=== PATIENT | female | born 1980 | race Caucasian/White ===

== ENCOUNTER 2017-07-21 06:55 | Inpatient (IN) | payer BC ==
--- NOTE | 2017-07-21 07:34 | PCM.LDHP ---
L&D History of Present Illness - General Date of Service: 07/21/17 Admit Problem/Dx: Admission Diagnosis/Problem Admission Diagnosis/Problem 07/21/17 07:24 39-0/7 week intrauterine , elective induction of labor Source of Information: Patient History Limitations: Reports: No Limitations - History of Present Illness Introduction:: Kathe is a 37-year-old 4 para 10-1 white female with an DARIEL of 2017 place her at 39-0/7 weeks gestational age who was admitted to labor and delivery for elective induction of labor. She having some minimal contractions. She reports good activity. Induction was discussed in detail the patient including procedure, risks, benefits, alternatives of care including awaiting onset of natural labor. She appears to understand, wishes to proceed. 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 DARIEL 07/28/2017 by certain last menstrual period starting 10/21/2016 and supported by 2 ultrasounds done on 01/11/2017 and . course has been relatively unremarkable. Inverted depression screening score was 2 out of 30 on the 03/22/2017. Group B strep screen is negative. Was to breast-feed. She had to her T gap on 05/16/2017. Previous obstetric experience includes menarche age 12, cycles every 28 days, certain last menstrual started 10/21/2016 and lasted for 5 days. She has regular monthly cycles and was not using any control time conception. Positive hCG was on 11/17/2016. Patient had 2 previous miscarriages on 12/01/2015 end 2015 at 6 and 8 weeks respectively. She had a viable, ordaz with delivery on 01/31/2012 at 40 weeks gestational age after 13 hours of labor. Male infant weighed 7 lbs. 15 oz. Was born by normal spontaneous vaginal delivery. Child's name is Cody. course started with her initial visit on 01/11/2017 at 11 weeks and 5 days. Initial weight was 174 end final weight was 199.8 for a 25 pound weight cane. Her vital signs and stable. Fundal height growth has been appropriate. Laboratory evaluation shows blood to be AB+. Negative antibody screen. First hemoglobin was 12.8 g/dL. Weight loss or 340,000. Her rubella titer was equivocal. Patient is a candidate for a measles mumps rubella vaccination after delivery. Hepatitis B surface antigen and HIV assays were both negative. Chlamydia and gonorrhea assays both negative. Second trimester laboratory testing showed a hemoglobin which is decreased at 11.4 g/dL. Platelets are 301, 000. Her group B strep screen was negative. Patient was a centering patient. Allergies none Medications: 1. Ferrous sulfate 325 mg per day 2. vitamins 1 daily and prepped 3. DHEA's 2 daily 4. Folic acid 800 g daily Family history: Mother with hypertension and type 2 diabetes. Father is alive and well. 2 sisters 1 with type 2 diabetes. One sister with hypothyroidism on meds. One brother is alive and well. Maternal grandmother is secondary to old age and dementia. Paternal grandfather secondary to stroke. Paternal grandmother at age 98. Paternal grandfather secondary to melanoma. No bleeding, clotting, anesthesia or significant problems noted. Social history: Patient is , is Kamran Ibrahim. She lives in [place]. 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 She does not use any significant loss of alcohol, drugs or tobacco. Review of systems: In general patient has no concerns. Baby is been active. Skin: Negative Cardiovascular: No chest pain or exercise intolerance Respiratory: No shortness of breath or infectious symptoms Breasts: Changes associated with . Patient plans to breast-feed. GI: Negative : Changes associated with fundal height growth etc. Musculoskeletal: Minimal bilateral lower extremity edema on occasion Neurological: Negative Physical exam: General patient is well-developed, well-nourished, pleasant phenyl stated age in no acute distress. She appears to be alert and oriented 3 and is a good historian. Her last blood pressure in clinic on 07/19/2017 was 118/68. Weight was 199 with pre- weight 174. Height is 5 feet 5. Pre body mass index is 27.5. heart rate at that time was 136. Skin is warm dry without lesions. HEENT, neck and back within normal notes Lungs are clear with good breath sounds in all lung kinney. Cardiovascular exam shows regular rate and rhythm without murmurs. Breast exam is deferred having been done at time of first visit and found to be normal. She plans to breast-feed. Abdomen is protuberant with fundal height on last evaluation clinic at 41 cm. Estimated weight by mother and myself is 8-8/2 pounds. Cervix is 3+ centimeters, 80% effaced, very soft, -2 station, anterior. Extremities show trace edema bilateral lower extremities. Neurological exam within normal limits. - Related Data Allergies/Adverse Reactions: Allergies Allergy/AdvReac Type Severity Reaction Status Date / Time No Known Allergies Allergy Verified 07/21/17 07:24 Home Medications: Home Meds oxyCODONE HCl/Acetaminophen [Percocet 5-325 mg Tablet] 1 - 2 each PO Q4H PRN # 20 tablet 11/22/15 [Rx] Social & Family History - Living Situation & Occupation Living situation: Reports: Occupation: Employed H&P Review of Systems - Review of Systems: Review Of Systems: See Below L&D Exam - Exam Exam: See Below - Vital Signs Vital Signs: Last Vital Signs Temp 37.2 C 07/21/17 07:20 Pulse 101 H 07/21/17 07:20 Resp 18 07/21/17 07:20 BP 128/77 07/21/17 07:20 Pulse Ox Problem List Initiated/Reviewed/Updated: Yes Assessment/Plan Comment:: Assessment: 1. 39-0/7 week intrauterine admitted for elective induction of labor 2. Estimated weight at 88 1/2 pounds. 3. Patient plans to breast-feed 4. Rubella equivocal. Patient a candidate for MMR post delvery 5. Group B strep screen negative 6. Patient desires to natural labor but accepting of epidural if needed Plan: 1. Artificial rupture membranes inductionruptured membranes has been done with resultant clear amniotic fluid 2. Pitocin augmentation as indicated 3. MMR post delivery as she is rubella titer equivocal 4. Epidural per desire patient 5. Encourage breast-feeding
[2017-07-21] MEDS ORDERED: Sodium Chloride 0.9% 10 ML Syringe FLUSH PRN (07:37)
[2017-07-21] MEDS ORDERED: Nalbuphine 20 MG/1 ML Amp IVPUSH PRN (07:37)
[2017-07-21] MEDS ORDERED: Ondansetron 4 MG/2 ML SDV IVPUSH PRN (07:37)
[2017-07-21] MEDS ORDERED: Aluminum Hydroxide/Magnesium Hydroxide/Simethicone Susp 30 ML Cup PO PRN (07:37)
[2017-07-21] MEDS ORDERED: Lidocaine 1% 50 ML MDV INJECT ONE (07:37)
[2017-07-21] MEDS ORDERED: Lactated Ringers 1,000 ML IV SCH (07:45)
[2017-07-21] MEDS ORDERED: Oxytocin/Lactated Ringers 10 UNIT/1,000 ML BAG IV SCH ×2 (07:45→14:30)
[2017-07-21] MEDS ORDERED: Lidocaine 1% 50 ML MDV ONE (13:58)
[2017-07-21] MEDS ORDERED: Benzocaine/Menthol 20%-0.5% Spray 56 GM Canister TOP PRN (14:29)
[2017-07-21] MEDS ORDERED: Acetaminophen 325 MG Tab PO PRN (14:29)
[2017-07-21] MEDS ORDERED: Measles, Mumps & Rubella Vaccine 0.5 ML SDV SUBCUT ONE (14:29)
[2017-07-21] MEDS ORDERED: Lanolin 100% Cream 7 GM Tube TOP PRN (14:29)
[2017-07-21] MEDS ORDERED: Docusate Sodium 100 MG Cap PO PRN (14:29)
[2017-07-21] MEDS ORDERED: Witch Hazel Medicated Pads 100/Jar TOP PRN (14:29)
[2017-07-21] MEDS ORDERED: Ibuprofen 600 MG Tab PO PRN (14:29)
--- NOTE | 2017-07-21 14:29 | PCM.SN ---
- Free Text/Narrative Note: Kathe is a 37-year-old 2 now para 2 white female was admitted on in active labor. She had an DARIEL of 07/28/2017 per early ultrasound and LMP. She underwent artificial rupture membranes induction of labor. She progressed steadily in labor to complete cervical dilation and delivered at 1357 hrs. She delivered a viable, ordaz, 4340 g (9 pounds 9.1 ounce) male , 21 inches long in a right occiput anterior position over a second- degree laceration of the perineum. The baby was placed on mom's abdomen and nose and mouth were bulb suctioned. The cord was allowed to pulsate with delayed cord clamping. Cord was then clamped 2 and cut. Her blood was obtained per protocol. Pitocin was started IV after delivery of the baby to facilitate increase in uterine tone and decrease risk of bleeding. The placenta delivered at 1400 hrs., appeared intact and complete and was discarded per patient desire. The secondary perineal laceration was repaired in a routine fashion using 3-0 Monocryl suture. Lidocaine 1%-10 mL was used for anesthesia. Estimated blood loss was 300 mL. Patient plans to breast-feed. Condition good.
--- NOTE | 2017-07-22 06:53 | PCM.SN ---
- Free Text/Narrative Note: note: Patient is doing well in the period. Minimal lochia, voiding well, ambulated without problems. Nursing without concerns. Patient is afebrile, vital signs are stable Abdomen is flat, soft, uterus is below the umbilicus and is firm and nontender. Legs are nontender. Hemoglobin day 1 is 11.2. Platelets are 247,000. White blood count is 15,000. Values are essentially normal for period. Assessment: recovery going well. Plan: Routine care. Patient be discharged home within the next 24- 48 hours.
[2017-07-22] MEDS ORDERED: Prenatal Multivitamin with Calcium/Folic Acid/Iron Tab PO SCH (09:00)
--- NOTE | 2017-07-22 16:04 | PCM.DCSUM1 ---
Discharge Summary - Hospital Course Free Text/Narrative:: Kathe is a 37-year-old 2 now para 2 white female was admitted on 2017 in active labor. She had an DARIEL of 07/28/2017 per early ultrasound and LMP. She underwent artificial rupture membranes induction of labor. She progressed steadily in labor to complete cervical dilation and delivered at 1357 hrs. She delivered a viable, ordaz, 4340 g (9 pounds 9.1 ounce) male , 21 inches long in a right occiput anterior position over a second-degree laceration of the perineum. The baby was placed on mom's abdomen and nose and mouth were bulb suctioned. The cord was allowed to pulsate with delayed cord clamping. Cord was then clamped 2 and cut. Her blood was obtained per protocol. Pitocin was started IV after delivery of the baby to facilitate increase in uterine tone and decrease risk of bleeding. The placenta delivered at 1400 hrs., appeared intact and complete and was discarded per patient desire. The secondary perineal laceration was repaired in a routine fashion using 3-0 Monocryl suture. Lidocaine 1%-10 mL was used for anesthesia. Estimated blood loss was 300 mL. Patient plans to breast-feed. patient is doing well. She is ambulating well, voiding without concerns and has minimal lochia. She is desiring to go home. - Discharge Data Discharge Date: 07/22/17 Discharge Disposition: Home, Self-Care 01 Condition: Good - Patient Instructions Diet: Regular Diet as Tolerated (Nursing diet was increased calories and calcium as recommended) Activity: As Tolerated (No intercourse or tampons until bleeding resolves) Driving: May Drive Today Showering/Bathing: May Shower (May take a bath) Notify Provider of: Fever, Increased Pain, Swelling and Redness, Nausea and/or Vomiting - Discharge Plan Home Medications: Home Meds Docosahexanoic Acid [DHA] 07/21/17 [History] Iron 07/21/17 [History] Pnv No.95/Ferrous Fum/Folic AC [ Multivitamin Tablet] 07/21/17 [History ] Acetaminophen [Tylenol] 650 mg PO Q4H PRN tablet 07/22/17 [Rx] Ibuprofen [IJD: Ibuprofen] 600 mg PO Q4H PRN tablet 07/22/17 [Rx] Referrals: Kamran Christensen MD [Primary Care Provider] - (Return to clinicDr. Christensen2 weeks.) - Discharge Summary/Plan Comment DC Time >30 min.: No Discharge Summary/Plan Comment: Discharge instructions: 1. Discharge home 2. Diet, activity and follow-up discussed with patient. Recommend nursing diet with increased calories and calcium. 3. Precautions given concern increased pain, bleeding, temperature, signs/ symptoms of DVT/PE. 4. Medications per home medication was printed, discussed with and given to the patient. 5. Return to clinic-Dr. Christensen-[facility] in 2 weeks. Diagnosis: Term -delivered Condition: Good - Patient Data Vitals - Most Recent: Last Vital Signs Temp 36.4 C 07/22/17 02:05 Pulse 87 07/22/17 02:05 Resp 16 07/22/17 02:05 BP 123/67 07/22/17 02:05 Pulse Ox 98 07/22/17 02:05 Weight - Most Recent: 89.539 kg I&O - Last 24 hours: Intake & Output 07/22/17 07/22/17 07/22/17 06:59 14:59 22:59 Intake Total 360 Balance 360 Lab Results - Last 24 hrs: Laboratory Results - last 24 hr 07/22/17 Range/Units 06:20 WBC 15.53 H (3.98-10.04) K/mm3 RBC 3.56 L (3.98-5.22) M/mm3 Hgb 11.2 (11.2-15.7) gm/L Hct 32.5 L (34.1-44.9) % MCV 91.3 (79.4-94.8) fl MCH 31.5 (25.6-32.2) pg MCHC 34.5 (32.2-35.5) g/dl RDW Std Deviation 44.6 (36.4-46.3) fL Plt Count 247 (182-369) K/mm3 MPV 11.3 (9.4-12.3) fl Med Orders - Current: Current Medications Acetaminophen (Tylenol) 650 mg PO Q4H PRN PRN Reason: mild pain or fever Benzocaine/Menthol (Dermoplast Pain Relief [place]) 0 gm TOP ASDIRECTED PRN PRN Reason: Perineal Comfort Measure Last Admin: 07/21/17 15:30 Dose: 1 applic Docusate Sodium (Colace) 100 mg PO BID PRN PRN Reason: Constipation Emollient Ointment (Lansinoh Hpa) 0 gm TOP ASDIRECTED PRN PRN Reason: Sore Nipples Ibuprofen (Motrin) 600 mg PO Q4H PRN PRN Reason: Mild pain or fever Prenat Multivit/[place]/Iron/Folic Ac ( Plus Iron) 1 each PO DAILY NORRIS Yari Ritchie (Tucks) 1 pad TOP ASDIRECTED PRN PRN Reason: Hemorrhoid pain Last Admin: 07/21/17 15:30 Dose: 1 applic Discontinued Medications Al Hydroxide/Mg Hydroxide (Mag-Al Plus) 30 ml PO Q8H PRN PRN Reason: Heartburn Lactated Ringer's (Ringers, Lactated) 1,000 mls @ 100 mls/hr IV ASDIRECTED NORRIS Oxytocin/Lactated Ringer's (Pitocin In Lr 10 Units/1,000 Ml) 10 unit in 1,000 mls @ 12 mls/hr IV TITRATE NORRIS; Protocol Oxytocin/Lactated Ringer's (Pitocin In Lr 10 Units/1,000 Ml) 10 unit in 1,000 mls @ 500 mls/hr IV TITRATE NORRIS; Protocol Last Admin: 07/21/17 13:58 Dose: 500 ml/hr, 500 mls/hr Lidocaine HCl (Xylocaine 1%) 10 ml INJECT ONETIME ONE Stop: 07/21/17 07:38 Last Admin: 07/21/17 14:16 Dose: 10 ml Lidocaine HCl (Xylocaine 1%) Confirm Administered Dose 50 ml .ROUTE .[facility] ONE Stop: 07/21/17 13:59 Last Admin: 07/21/17 14:16 Dose: Not Given Measles/Mumps/Rubella Vaccine Live (M-M-R Ii Vaccine) 0.5 ml SUBCUT .ONCE ONE Stop: 07/21/17 14:30 Nalbuphine HCl (Nubain) 10 mg IVPUSH Q2H PRN PRN Reason: Pain (moderate 4-6) Ondansetron HCl (Zofran) 4 mg IVPUSH Q4H PRN PRN Reason: Nausea/Vomiting Sodium Chloride (Saline Flush) 10 ml FLUSH ASDIRECTED PRN PRN Reason: Keep Vein Open
[2017-07-22 20:01] VITALS: BP 111/73
== END 2017-07-22 18:10 | disposition home or self-care (01) | DRG 560 ==
LOC: JD.OB 06:55 → OBSVTOIN 13:57 → JD.OB 13:57
PROVIDERS: ADMIT Obstetrics & Gynecology; ATTEND Obstetrics & Gynecology
PROC: 10E0XZZ Delivery of Products of Conception, External Approach (ICD-10-PCS; principal; 2017-07-21)
PROC: 10907ZC Drainage of Amniotic Fluid, Therapeutic from Products of Conception, Via Natural or Artificial Opening (ICD-10-PCS; 2017-07-21)
PROC: 0KQM0ZZ Repair Perineum Muscle, Open Approach (ICD-10-PCS; 2017-07-21)
DX: O70.1 Second degree perineal laceration during delivery (principal); Z3A.39 39 weeks gestation of pregnancy; Z37.0 Single live birth
CPT/HCPCS: 36415; 59025; 59300; 59409; 85025; 85027; 90471; 90707; A9270-GY; J2590